=== PATIENT | female | born 1960 | race Caucasian/White ===

== ENCOUNTER → 2018-01-02 09:51 | Outpatient (CLI) | payer OTHER, SELFPAY ==
--- NOTE | 2018-01-02 | DI.RAD.S_ITS ---
PROCEDURE: XR LUMBAR SPINE 2-3V INDICATIONS: 57 year-old female with right hip pain and low back pain. TECHNIQUE: 3 views of the lumbar spine were acquired. COMPARISON: None. FINDINGS: Bones: 5 [id number] vertebrae are present. There is normal bony alignment. No vertebral body compression fractures. There is lower lumbar spine facet joint degeneration. No degenerative disc narrowing. No suspicious bony lesions. Soft tissues: Overlying bowel gas pattern is normal. No suspicious soft tissue calcifications. 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 Dictated by: Markel Caraballo M.D. on 01/02/2018 at 11:06 Approved by: Markel Caraballo M.D. on 01/02/2018 at 11:07
--- NOTE | 2018-01-02 | DI.RAD.S_ITS ---
PROCEDURE: XR HIP W PEL IF DONE RT 2V INDICATIONS: 57 year-old female with right hip pain and low back pain. TECHNIQUE: AP pelvis with lateral view(s) of the right hip(s). COMPARISON: None. FINDINGS: Bones: No fractures or dislocations. Pelvic ring appears intact. No hip joint degeneration. No suspicious bony lesions. Soft tissues: The visualized bowel gas pattern is normal. No suspicious soft tissue calcifications. IMPRESSION: No radiographic explanation for right hip pain. Dictated by: Markel Caraballo M.D. on 01/02/2018 at 11:08 Approved by: Markel Caraballo M.D. on 01/02/2018 at 11:08
== END ==
PROVIDERS: Visit Provider Naturopath
DX: M47.896 Other spondylosis, lumbar region (principal); M25.551 Pain in right hip; M54.5 Low back pain
CPT/HCPCS: 72100; 73502

== ENCOUNTER → 2022-01-09 07:46 | Outpatient (CLI) | payer OTHER, SELFPAY ==
--- NOTE | 2022-01-09 07:50 | DI.RAD.S_ITS ---
PROCEDURE: XR HIP W PEL IF DONE [place] MIN 4V INDICATIONS: HIP PAIN TECHNIQUE: AP pelvis with lateral view(s) of the right and left hip(s). COMPARISON: None. FINDINGS: Bones: No fractures or dislocations. Pelvic ring appears intact. No suspicious bony lesions. Bilateral hip osseous hypertrophy. Soft tissues: The visualized bowel gas pattern is normal. No suspicious soft tissue calcifications. IMPRESSION: Mild bilateral hip osteoarthritis. Dictated by: Briana Delacrzu MD, PhD on 01/09/2022 at 12:16 Approved by: Briana Delacruz MD, PhD on 01/09/2022 at 12:18
== END ==
PROVIDERS: Family Provider Obstetrics & Gynecology; PCP Naturopath; Referring Provider Naturopath; Visit Provider Naturopath
DX: M25.551 Pain in right hip (principal); M16.0 Bilateral primary osteoarthritis of hip
CPT/HCPCS: 73522

== ENCOUNTER 2023-09-17 12:30 | Outpatient (RCR) | payer OTHER, SELFPAY | END 2023-09-17 14:30 | LOC: CAR 12:30 | PROVIDERS: PCP Naturopath; Referring Provider Thoracic Surgery (Cardiothoracic Vascular Surgery); Visit Provider Thoracic Surgery (Cardiothoracic Vascular Surgery) | DX: I21.4 Non-ST elevation (NSTEMI) myocardial infarction (principal) | CPT/HCPCS: 93798 ==